=== PATIENT | male | born 1975 | race Caucasian/White ===

== ENCOUNTER 2018-11-01 10:08 | Emergency (ER) | payer MEDICAID ==
[~2018-11-01] VITALS: Ht 188 cm; Wt 139.4 kg
[2018-11-01 10:19] VITALS: BP 154/92
--- NOTE | 2018-11-01 10:25 | NUR ---
PT PRESENTS TO ED WITH C/O LUQ PAIN X4 DAYS. PT REPORTS LUQ PAIN 10/10 THAT RADIATES TO BACK. DENIES N/V/D OR FEVER. PT AAO X4, GCS 15, ABLE TO SPEAK WITH FULL COMPLETE SENTENCES. RESPRIATIONS EVEN AND UNALBORED, BL LUNG CLEAR. SKIN WARM/PINK/DRY, +PMSC. ABDOMEN ROUND, SOFT, NON DISTENDED, ACTIVE BOWEL SOUND X4. VS WNL. DR. REYNOSO MADE AWARE OF PT STATSUS. WILL CONTINUE TO MONITOR
[2018-11-01] MEDS ORDERED: NACL 0.9% 1,000 ML IV ONE ×2 (10:55→13:05)
[2018-11-01] MEDS ORDERED: KETOROLAC 30 MG/ML VIAL IVP ONE (11:00)
[2018-11-01 11:11] LABS: BASOPHILS % (AUTO) 0.7 % (0.0-2.0); EOSINOPHILS # (AUTO) 0.1 K/uL (0-0.4); EOSINOPHILS % (AUTO) 1.2 % (0.0-4.0); HEMATOCRIT 43.1 % (36-52); HEMOGLOBIN 14.8 g/dL (12.0-18.0); LYMPHOCYTES # (AUTO) 1.4 K/uL (2.0-11.5); LYMPHOCYTES % (AUTO) 31.2 % (20.5-51.1); MEAN CORPUSCULAR HEMOGLOBIN 32 pg (27-31); MEAN CORPUSCULAR HGB CONC 34 g/dL (33-37); MEAN CORPUSCULAR VOLUME 91.7 fL (80-94); MONOCYTES # (AUTO) 0.4 K/uL (0.8-1.0); MONOCYTES % (AUTO) 8.9 % (1.7-9.3); NEUTROPHILS # (AUTO) 2.6 K/uL (1.8-7.7); PLATELET COUNT (AUTO) 176 K/uL (140-450); RED BLOOD CELL COUNT(AUTO) 4.71 MIL/uL (4.20-6.10); RED CELL DISTRIBUTION WIDTH 12.8 % (11.6-13.7); WHITE BLOOD COUNT (AUTO) 4.5 K/uL (4.8-10.8)
[2018-11-01 11:23] LABS: POTASSIUM 4.1 mmol/L (3.5-5.1)
[2018-11-01 11:24] LABS: ALBUMIN 3.6 g/dL (3.4-5.0); ANION GAP 11.1 (8-16); CREATININE 1.2 mg/dL (0.7-1.3); TOTAL BILIRUBIN 0.6 mg/dL (0.0-1.0)
[2018-11-01 11:37] LABS: CREATINE KINASE MB 1.1 ng/mL (0-3.6)
[2018-11-01] MEDS ORDERED: DICYCLOMINE HCL LIQUID 20 MG, ALUMINUM HYD/MAG/SIMETHICONE 30 ML, LIDOCAINE VISCOUS 2% ... PO ONE ×3 (11:50)
--- NOTE | 2018-11-01 12:00 | NUR ---
PT REMAINS GCS 15, RESPIATIONS EVEN AND UNALBORED. VSS, NO ACUTE DSITRESS AT THIS TIME. WILL CONTINUE TO MONITOR
--- NOTE | 2018-11-01 13:55 | NUR ---
Patient discharged with v/s stable. Written and verbal after care instructions given and explained. Patient alert, oriented and verbalized understanding of instructions. Ambulatory with steady gait. All questions addressed prior to discharge. ID band removed. Patient advised to follow up with PMD. Rx of MYLANTA, METFORMIN 500 MG given. Patient educated on indication of medication including possible reaction and side effects. Opportunity to ask questions provided and answered.
[2018-11-01 13:56] VITALS: BP 138/71
== END 2018-11-01 13:55 | disposition home or self-care (01) ==
LOC: MED 10:08
DX: R10.12 Left upper quadrant pain (principal); R73.9 Hyperglycemia, unspecified; K21.9 Gastro-esophageal reflux disease without esophagitis
CPT/HCPCS: 36415; 71045; 80053; 82550; 82553; 82948; 83690; 84484; 85025; 93005; 96374; 99284; J1885; J7030; Q0092

== ENCOUNTER 2022-09-20 22:36 | Emergency (ER) | payer MEDICAID ==
[~2022-09-20] VITALS: Ht 193 cm; Wt 136.1 kg
--- NOTE | 2022-09-20 23:09 | NUR ---
TO LOBBY FOLLOWING TRIAGE
--- NOTE | 2022-09-20 23:44 | NUR ---
PT TAKEN TO XRAY
[2022-09-21] MEDS ORDERED: LID5T TP (00:09)
[2022-09-21] MEDS ORDERED: IBUP-2213 PO (00:09)
[2022-09-21] MEDS ORDERED: KETOROLAC 30 MG/ML VIAL IM ONE (00:10)
[2022-09-21] MEDS ORDERED: LIDOCAINE 5% 1 EA PATCH TP ONE (00:10)
[2022-09-21 01:06] VITALS: BP 129/75
--- NOTE | 2022-09-21 01:06 | NUR ---
Patient discharged with v/s stable. Written and verbal after care instructions given and explained. New rx for lidocaine and ibuprofen. Patient verbalized understanding. Ambulatory with steady gait. All questions addressed prior to discharge. Advised to follow up with PMD.
== END 2022-09-21 01:06 | disposition home or self-care (01) ==
LOC: MED 22:36
DX: S46.911A Strain of unspecified muscle, fascia and tendon at shoulder and upper arm level, right arm, initial encounter (principal); E11.9 Type 2 diabetes mellitus without complications; K21.9 Gastro-esophageal reflux disease without esophagitis; Z79.899 Other long term (current) drug therapy; Z79.1 Long term (current) use of non-steroidal anti-inflammatories (NSAID); X50.0XXA Overexertion from strenuous movement or load, initial encounter; Y92.009 Unspecified place in unspecified non-institutional (private) residence as the place of occurrence of the external cause; Y93.89 Activity, other specified; Y99.8 Other external cause status
CPT/HCPCS: 73030; 96372; 99283; J1885